=== PATIENT | female | born 1940 | race Caucasian/White ===

== ENCOUNTER 2023-02-03 13:09 | Emergency (ER) | payer MEDICARE, OTHER ==
[~2023-02-03] VITALS: Ht 162.6 cm; Wt 63.5 kg
[2023-02-03 13:50] LABS: BASOPHILS ABSOLUTE AUTO 0.03 K/mm3 (0.00-0.23); BASOPHILS PERCENT AUTO 0 % (0-2); EOSINOPHILS ABSOLUTE AUTO 0.15 K/mm3 (0.00-0.68); EOSINOPHILS PERCENT AUTO 2 % (0-6); Hematocrit 40.2 % (33.0-51.0); Hemoglobin 14.1 g/dL (11.5-16.0); IMMATURE GRAN ABSOLUTE AUTO 0.03 K/mm3 (0.00-0.10); IMMATURE GRAN PERCENT AUTO 0 % (0-1); LYMPHOCYTES ABSOLUTE AUTO 1.95 K/mm3 (0.84-5.20); LYMPHOCYTES PERCENT AUTO 23 % (21-46); MONOCYTES ABSOLUTE AUTO 0.69 K/mm3 (0.16-1.47); MONOCYTES PERCENT AUTO 8 % (4-13); Mean Corpuscular HGB Conc 35.1 g/dL (31.5-36.5); Mean Corpuscular Volume 91 fL (80-100); Mean Platelet Volume 10.7 fL (9.1-12.4); NEUTROPHILS PERCENT AUTO 66 % (41-73); Platelet Count 271 K/mm3 (150-400); RDW Coefficient Variation 13.1 % (11.7-14.2); RDW Standard Deviation 44.1 fL (35.1-46.3); Red Blood Cell Count 4.41 M/mm3 (3.80-5.20); White Blood Cell Count 8.45 K/mm3 (4.00-11.30)
[2023-02-03 14:11] LABS: Albumin/Globulin Ratio 1.2 (0.8-1.8); Bilirubin, Total 1.4 mg/dL (0.1-1.0); Bun/Creatinine Ratio 28.8 (12.0-20.0); Calcium, Blood 9.4 mg/dL (8.5-10.1); Creatinine, Blood 0.66 mg/dL (0.40-1.00); Globulin, Blood 3.4 g/dL (2.2-4.0); Potassium, Blood 3.7 mmol/L (3.5-5.5); Total Protein, Blood 7.4 g/dL (6.4-8.2)
[2023-02-03] MEDS ORDERED: AMLO5 PO (16:25)
[2023-02-03 17:30] VITALS: BP 187/80
== END 2023-02-03 17:45 | disposition home or self-care (01) ==
LOC: ER 13:09
PROVIDERS: Physician Assistant
DX: I10 Essential (primary) hypertension (principal); R06.02 Shortness of breath
CPT/HCPCS: 71046; 80053; 83880; 84484; 85025; 99284-25; A9270

== ENCOUNTER 2024-04-24 08:20 | Day surgery (SDC) | payer OTHER ==
[~2024-04-24] VITALS: Ht 162.6 cm; Wt 61.6 kg
[~2024-04-24 08:20] MED LIST: AMLO5 PO; Amlodipine Bes2.5 MG PO; Balanced Salt Epinephrine Irrigation Solution 500 mL IR SCH; Lidocaine HCl/Pf 1% 5 ML VIAL XX SCH; Moxifloxacin HCL 0.5 MG/0.1 ML 0.4MLSYR LEFTEYE SCH; NS 500 ML IV ONE; PHENYLEPHRINE\\TROPICAMIDE\\TETRACAINE OPHTHALMIC DILATING SOLN LEFTEYE PRN; Povidone-Iodine 450 DROP/30 ML Solution LEFTEYE SCH; Povidone-Iodine 450 DROP/30 ML Solution ONE; Tetracaine HCl/Pf 0.5% Opth Soln 4 ml ONE
[2024-04-24] MEDS ORDERED: NS 500 ML IV ONE (08:52)
--- NOTE | 2024-04-24 08:53 | NUR ---
04/24/24 0853 Ruchi Christy CALL LIGHT WITHIN REACH. TETRACAINE IN LEFT EYE AT 0850 AND PLEDGETT IN AT 0851
[2024-04-24] MEDS ORDERED: Midazolam HCl 1MG / ML 2ML Vial ONE (09:42)
[2024-04-24] MEDS ORDERED: HydrALAZINE HCl 20 MG / ML 1ML Vial ONE (09:44)
[2024-04-24 10:07] VITALS: BP 133/64
--- NOTE | 2024-04-24 10:17 | NUR ---
04/24/24 [id number] Ada Fong PT HAS 3 PAIN SCORE IN LEFT EYE. IT IS A FEELING OF SCRATCY. DRINKING BLACK COFFEE WITHOUT N/V. DAUGHTER CLAIRE HERE TO DRIVE HER HOME.
== END 2024-04-24 10:22 | disposition home or self-care (01) ==
LOC: ORSCSDS 08:20
PROVIDERS: Student in an Organized Health Care Education/Training Program
PROC: 08RK3JZ Replacement of Left Lens with Synthetic Substitute, Percutaneous Approach (ICD-10-PCS; principal; 2024-04-24 10:00)
DX: H25.813 Combined forms of age-related cataract, bilateral (principal); I10 Essential (primary) hypertension; Z79.899 Other long term (current) drug therapy
CPT/HCPCS: J0360; J2250; J7040; V2632

== ENCOUNTER 2024-05-01 08:07 | Day surgery (SDC) | payer OTHER ==
[~2024-05-01] VITALS: Ht 162.6 cm; Wt 60.7 kg
[~2024-05-01 08:07] MED LIST changes: -Moxifloxacin HCL 0.5 MG/0.1 ML 0.4MLSYR LEFTEYE SCH; +Moxifloxacin HCL 0.5 MG/0.1 ML 0.4MLSYR RIGHTEYE SCH; -NS 500 ML IV ONE; -PHENYLEPHRINE\\TROPICAMIDE\\TETRACAINE OPHTHALMIC DILATING SOLN LEFTEYE PRN; +PHENYLEPHRINE\\TROPICAMIDE\\TETRACAINE OPHTHALMIC DILATING SOLN RIGHTEYE PRN; -Povidone-Iodine 450 DROP/30 ML Solution LEFTEYE SCH; +Povidone-Iodine 450 DROP/30 ML Solution RIGHTEYE SCH
[2024-05-01] MEDS ORDERED: AMLODIPINE BES2.5 MG PO (08:28)
--- NOTE | 2024-05-01 08:36 | NUR ---
05/01/24 0836 Kelle Fernandez AT 0828 PLEDGET AT 0830
[2024-05-01] MEDS ORDERED: Midazolam HCl 1MG / ML 2ML Vial ONE (08:53)
[2024-05-01 10:18] VITALS: BP 148/67
--- NOTE | 2024-05-01 10:19 | NUR ---
05/01/24 1019 Griffin Hernandes PT INSTRUCTED TO MONITOR B/P AT HOME, AND FOLLOW UP WITH PCP IF NEEDED.
== END 2024-05-01 09:43 | disposition home or self-care (01) ==
LOC: ORSCSDS 08:07
PROVIDERS: Student in an Organized Health Care Education/Training Program
PROC: 08RJ3JZ Replacement of Right Lens with Synthetic Substitute, Percutaneous Approach (ICD-10-PCS; principal; 2024-05-01 10:00)
DX: H25.811 Combined forms of age-related cataract, right eye (principal); Z96.1 Presence of intraocular lens; H04.123 Dry eye syndrome of bilateral lacrimal glands; I10 Essential (primary) hypertension; Z87.891 Personal history of nicotine dependence; Z79.899 Other long term (current) drug therapy
CPT/HCPCS: J2250; V2632